=== PATIENT | male | born 1995 | race Caucasian/White ===

== ENCOUNTER 2018-06-03 02:44 | Emergency (ER) | payer OTHER ==
[~2018-06-03] VITALS: Ht 172.7 cm; Wt 54.5 kg
[2018-06-03 02:49] VITALS: BP 128/77; TEMP 97.7
[2018-06-03 04:02] VITALS: PULSE 83
== END 2018-06-03 04:02 | disposition home or self-care (01) ==
LOC: COL.ER 02:44
DX: M79.602 Pain in left arm (principal)
CPT/HCPCS: J1885

== ENCOUNTER → 2018-06-04 | Outpatient (CLI) | payer OTHER | LOC: COL.RAD 13:56 | DX: R10.31 Right lower quadrant pain (principal); R59.0 Localized enlarged lymph nodes ==